=== PATIENT | female | born 1980 | race American Indian/Alaskan Native ===

== ENCOUNTER 2019-11-09 16:27 | Emergency (ER) | payer BC ==
[2019-11-09 16:34] VITALS: BP 158/95
[2019-11-09] MEDS ORDERED: traMADol 50 MG TAB PO ONE (16:55)
--- NOTE | 2019-11-09 17:10 | Emergency Department Report ---
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 She states she twisted her knee, down the steps at home 2 days ago now pain is 5/10 with intermittent swelling to right anterior knee. Patient does remain ambulatory however. Symptoms are exacerbated by weightbearing and stair climbing. Symptoms are relieved by offloading and rest. There is no deformity, no abrasion, no laceration, no bleeding. Patient denies numbness, no tingling, no weakness, no knee buckling. MD Complaint: knee injury Onset/Timin -: days(s) Injury: Knee: Right Type of Injury: other (twisted ) Place: home Severity: moderate Severity scale (0 -10): 5 Improves With: rest Worsens With: weight bearing, movement, palpation Context: walking, other (twisted ) Associated Symptoms: swelling, ambulatory. denies: numbness, tingling - Related Data Previous Rx's Medication Instructions Recorded Last Taken Type Menthol/Camphor [[place] 1 applicatio TP QID PRN #1 tube 11/09/19 Unknown Rx Ointment] Naproxen 500 mg PO BID #30 tablet 11/09/19 Unknown Rx predniSONE [Deltasone] 40 mg PO QDAY 5 Days #10 tab 11/09/19 Unknown Rx Allergies Allergy/AdvReac Type Severity Reaction Status Date / Time No Known Allergies Allergy Unverified 11/09/19 16:29 ED Review of Systems ROS: Stated complaint: RT KNEE PAIN Other details as noted in HPI Constitutional: denies: chills, fever Eyes: denies: eye pain, eye discharge, vision change ENT: denies: ear pain, throat pain Respiratory: denies: cough, shortness of breath, wheezing Cardiovascular: denies: chest pain, palpitations Endocrine: no symptoms reported Gastrointestinal: denies: abdominal pain, nausea, diarrhea Genitourinary: denies: urgency, dysuria, discharge Musculoskeletal: joint swelling, arthralgia. denies: back pain Skin: denies: rash, lesions Neurological: denies: headache, weakness, paresthesias Psychiatric: as per HPI Hematological/Lymphatic: denies: easy bleeding, easy bruising ED Past Medical Hx - Past Medical History Previous Medical History?: No - Surgical History Additional Surgical History: BACK - Social History Smoking Status: Never Smoker Substance Use Type: Alcohol - Medications Home Medications: Home Medications Medication Instructions Recorded Confirmed Last Taken Type Menthol/Camphor [[place] 1 applicatio TP QID PRN #1 tube 11/09/19 Unknown Rx Ointment] Naproxen 500 mg PO BID #30 tablet 11/09/19 Unknown Rx predniSONE [Deltasone] 40 mg PO QDAY 5 Days #10 tab 11/09/19 Unknown Rx ED Physical Exam - General Limitations: No Limitations General appearance: alert, in no apparent distress - Head Head exam: Present: atraumatic, normocephalic - Eye Eye exam: Present: normal appearance, PERRL, EOMI Pupils: Present: normal accommodation - ENT ENT exam: Present: mucous membranes moist - Neck Neck exam: Present: normal inspection, full ROM. Absent: tenderness - Respiratory Respiratory exam: Present: normal lung sounds bilaterally. Absent: respiratory distress, wheezes, chest wall tenderness - Cardiovascular Cardiovascular Exam: Present: regular rate, normal rhythm, normal heart sounds. Absent: systolic murmur, diastolic murmur, rubs, gallop - GI/Abdominal GI/Abdominal exam: Present: soft, normal bowel sounds. Absent: tenderness - Rectal Rectal exam: Present: deferred - Extremities Exam Extremities exam: Present: normal inspection, full ROM - Back Exam Back exam: Present: normal inspection, full ROM. Absent: tenderness, CVA tenderness (R), CVA tenderness (L), vertebral tenderness - Neurological Exam Neurological exam: Present: alert, oriented X3, CN II-XII intact, normal gait, reflexes normal. Absent: motor sensory deficit - Expanded Neurological Exam Expanded Patient oriented to: Present: person, place, time Motor strength exam: RUE: 5, LUE: 5, RLE: 5, LLE: 5 Best Eye Response (Brittany): (4) open spontaneously Best Motor Response (Brittany): (6) obeys commands Best Verbal Response (Brittany): (5) oriented Brittany Total: 15 - Psychiatric Psychiatric exam: Present: normal affect - Skin Skin exam: Present: warm, dry, intact, normal color. Absent: rash ED Course Vital Signs 11/09/19 16:29 Temperature 98.3 F Pulse Rate 72 Respiratory 20 Rate Blood Pressure 158/95 O2 Sat by Pulse 97 Oximetry ED Lower Extremity MDM - Radiology Data Radiology results: report reviewed, image reviewed Findings Reporting MD: Mg Aguilar Dictation Time: November 09, 2019 16:14 Recapper: Not available Research Consultant Date: RIGHT KNEE 3 VIEWS 1703 INDICATION: MAIN: R knee pain, twisted COMPARISON: None available. FINDINGS: Images are mildly underpenetrated. Mild tricompartment degenerative changes are noted. No definite joint effusions are seen. No fractures or dislocations are seen. Signer Name: Mg Aguilar MD Signed: 11/09/2019 4:14 PM Workstation Name: [id number] - Medical Decision Making X-ray demonstrate left knee strain with effusions tricompartmental degeneration no fracture. Plan knee immobilizer, crutches, NSAIDs, and steroids. follow-up with orthopedics in 2 days. Patient verbalizes agreement and understanding with sign patient demonstrates safe use of crutches, and knee immobilizer. Velcro new knee brace noted intact spacing is appropriate. Critical care attestation.: If time is entered above; I have spent that time in minutes in the direct care of this critically ill patient, excluding procedure time. ED Disposition Clinical Impression: Knee effusion, right Strain of right knee Qualifiers: Encounter type: initial encounter Qualified Code(s): S86.911A - Strain of unspecified muscle(s) and tendon(s) at lower leg level, right leg, initial encounter Disposition: -01 TO HOME OR SELFCARE Is pt being admited?: No Does the pt Need Aspirin: No Condition: Stable Instructions: Knee Effusion (ED), Knee Exercises (GEN) Prescriptions: predniSONE [Deltasone] 40 mg PO QDAY 5 Days #10 tab Naproxen 500 mg PO BID #30 tablet Menthol/Camphor [[place] Ointment] 1 applicatio TP QID PRN #1 tube PRN Reason: pain Referrals: AIXA ROSENBAUM MD [Primary Care Provider] - 3-5 Days NAVEEN ROJAS MD [Staff Physician] - 3-5 Days Forms: Work/School Release Form(ED) Time of Disposition: 18:00
--- NOTE | 2019-11-09 17:19 | XRay Report ---
RIGHT KNEE 3 VIEWS 1703 INDICATION: MAIN: R knee pain, twisted COMPARISON: None available. FINDINGS: Images are mildly underpenetrated. Mild tricompartment degenerative changes are noted. No d efinite joint effusions are seen. No fractures or dislocations are seen. Signer Name: Mg Aguilar MD Signed: 11/09/2019 5:14 PM Workstation Name: [id number]
[2019-11-09] MEDS ORDERED: dexAMETHasone 20 MG/5 ML VIAL IM ONE (17:51)
== END 2019-11-09 18:21 | disposition home or self-care (01) ==
LOC: ED 16:27
DX: S86.911A Strain of unspecified muscle(s) and tendon(s) at lower leg level, right leg, initial encounter (principal); X58.XXXA Exposure to other specified factors, initial encounter; Y93.89 Activity, other specified; Y92.89 Other specified places as the place of occurrence of the external cause; Y99.8 Other external cause status

== ENCOUNTER 2020-08-10 12:45 | Outpatient (CLI) | payer BC ==
--- NOTE | 2020-08-10 16:44 | Mammography Report ---
DIGITAL SCREENING MAMMOGRAM WITH CAD, 08/10/2020 CLINICAL INFORMATION / INDICATION: Routine screening mammography. TECHNIQUE: Digital bilateral 2D mammography was obtained in the craniocaudal and mediolateral obliqu e projections. This examination was interpreted with the benefit of Computer-Aided Detection analysis . COMPARISON: This is the patient's first mammogram. FINDINGS: Breast Density: There are scattered areas of fibroglandular density. No dominant mass, suspicious calcifications, or architectural distortion in the right breast. In the left breast, upper outer quadrant, there is an oval partially well-circumscribed 2.1 cm mass. It is unclear if this is a benign intramammary lymph node. Further evaluation with left breast ultras ound and possibly spot compression view should be obtained. IMPRESSION: 2.1 cm left breast mass, upper outer quadrant. Recommend left breast ultrasound with poss ible spot compression imaging. Follow up recommendation: Ultrasound BI-RADS Category 0: Incomplete. Needs additional imaging evaluation and/or prior mammograms for jose crawford. A "normal" or negative report should not discourage follow up or biopsy of a clinically significant f inding. A written summary of these findings will be mailed to the patient. The patient will be entered into a mammography reporting system which will generate a reminder letter for the patient's next appointmen t at the appropriate interval. The [employer] recommends yearly mammograms starting at age 40 and continuing as l ava as a woman is in good health. Breast MRI is recommended for women with an approximate 20-25% or greater lifetime risk of breast cancer, including women with a strong family history of breast or ova ambrosio cancer or who have been treated for Hodgkin's disease. Signer Name: Chelsea Harris MD Signed: 08/10/2020 4:39 PM Workstation Name: [email or web address]
== END 2020-08-10 12:46 | disposition home or self-care (01) ==
LOC: MAMMO 12:45
DX: Z12.31 Encounter for screening mammogram for malignant neoplasm of breast (principal)
CPT/HCPCS: 77067

== ENCOUNTER 2020-09-04 11:53 | Outpatient (CLI) | payer BC ==
--- NOTE | 2020-09-04 13:22 | Ultrasound Report ---
ULTRASOUND BREAST LEFT LIMITED, 09/04/2020 CLINICAL INFORMATION / INDICATION: ABNORMAL MAMMOGRAM. Patient presents as a callback from screening mammogram for further evaluation of a nodular density in the left breast. TECHNIQUE: Targeted ultrasound evaluation was performed of the area of interest. COMPARISON: Prior mammogram 08/10/2020 FINDINGS: Corresponding with the nodular density seen on recent mammogram, there is an oval circumscribed hypoe choic mass in the left breast 2:00 position located 4 cm from the nipple measuring up to 1.8 x 0.8 x 1.6 cm. The mass is parallel. Foci of internal vascularity are demonstrated. IMPRESSION: 1. An oval circumscribed hypoechoic mass in the left breast corresponds with the mammographic finding . This is considered low suspicion for malignancy and most likely represents a fibroadenoma, though u ltrasound-guided biopsy is recommended for confirmation. Follow up recommendation: Biopsy BI-RADS Category 4: Suspicious for Malignancy. A normal or "negative" report should not preclude biopsy or follow-up of a clinically suspicious find ing. Signer Name: Zenia Francisco MD Signed: 09/04/2020 1:18 PM Workstation Name: [email or web address]
== END 2020-09-04 11:54 | disposition home or self-care (01) ==
LOC: US 11:53
PROVIDERS: ATTEND Obstetrics & Gynecology
DX: N63.20 Unspecified lump in the left breast, unspecified quadrant (principal); R92.8 Other abnormal and inconclusive findings on diagnostic imaging of breast

== ENCOUNTER 2020-10-01 12:38 | Outpatient (CLI) | payer BC ==
[2020-10-01] MEDS ORDERED: LIDOCAINE (1%) 10 MG/1 ML VIAL 20 ML MDV INFILTRATI ONE (14:00)
--- NOTE | 2020-10-01 14:27 | Ultrasound Report ---
ULTRASOUND GUIDED LEFT BREAST BIOPSY, 10/01/2020 LEFT DIAGNOSTIC MAMMOGRAM CLINICAL INFORMATION / INDICATION: ABNORMAL MAMMOGRAM. Patient has a left breast nodule, here for bio psy COMPARISON: Screening mammogram from 08/10/2020 and ultrasound from 09/04/2020 PROCEDURE: Risks, benefits, and indications to the procedure were discussed with the patient in detail, includin g bleeding, infection, hematoma formation, and inadequate tissue sampling. The patient agreed to proc eed with both verbal and written consent. A timeout procedure was performed with two patient identifi ers. The breast was prepped and draped in the usual sterile fashion. Lidocaine 1% was used for local anest hesia. Under direct ultrasound guidance, 4 separate 14 gauge core samples were obtained of the left b reast nodule. A biopsy marker was then placed. Biopsy device was removed and hemostasis achieved wit h manual pressure. A sterile dressing was applied to the skin. The patient tolerated the procedure without difficulty. No complications were encountered. Postbiopsy instructions were discussed with the patient and given in writing. Specimens were sent to pathology. The patient was then sent for a confirmatory mammogram to demonstrate adequate clip positioning in th e area in question. IMPRESSION: 1. Technically successful ultrasound guided left breast biopsy. 2. Satisfactory positioning of the biopsy clip on the post procedure mammogram. Biopsy results are pending and will be reported in an addendum. Signer Name: Jayant Chavez MD Signed: 10/01/2020 2:22 PM Workstation Name: [id number]
== END 2020-10-01 12:39 | disposition home or self-care (01) ==
LOC: US 12:38
PROVIDERS: ATTEND Obstetrics & Gynecology
DX: R92.8 Other abnormal and inconclusive findings on diagnostic imaging of breast (principal); N63.20 Unspecified lump in the left breast, unspecified quadrant; Z79.899 Other long term (current) drug therapy
CPT/HCPCS: 88305